=== PATIENT | female | born 1995 | race Caucasian/White ===

== ENCOUNTER → 2019-05-25 13:37 | Outpatient (CLI) | payer MEDICARE, OTHER, SELFPAY ==
--- NOTE | 2019-05-25 13:55 | DI.CT.S_ITS ---
PROCEDURE: CT ABDOMEN PELVIS W CON INDICATIONS: abdominal pain TECHNIQUE: After the administration of oral and intravenous contrast, 5 mm thick sections acquired from the diaphragms to the symphysis. 5 mm thick coronal and sagittal reformats were performed. For radiation dose reduction, the following was used: automated exposure control, adjustment of mA and/or kV according to patient size. COMPARISON: None. FINDINGS: Image quality: Diagnostic. ABDOMEN: Lung bases: Lung bases are clear. Heart size is normal. Solid organs: There is moderate right-sided hydronephrosis and hydroureter with urothelial enhancement of the ureter. The distal most aspect of the ureter contains a 3 x 3 x 3 mm calculus near the vesicoureteral junction (image 69, series 2). No additional obstructing or nonobstructing renal or ureteral calculi are seen bilaterally. No hydronephrosis of the left kidney is identified. The liver is somewhat hypodense when compared to the spleen. No focal liver lesions are evident. The gallbladder is within normal limits. There is no intrahepatic or extrahepatic biliary dilatation. The pancreas, spleen, and adrenals are within normal limits. Peritoneum and bowel: The stomach is unremarkable. The small bowel loops are nondilated. Moderate residual stool is identified throughout the colon. The appendix is not clearly seen. However, what is felt to represent the appendix (images 67, series 2 it is normal in size without surrounding inflammation. No free fluid or loculated fluid collection is seen within the abdomen. Nodes and vessels: No retroperitoneal or mesenteric adenopathy. Aorta and inferior vena cava are normal in caliber. Bones: No acute fracture or dislocation is evident. No suspicious osseous lesions present. PELVIS: Genitourinary: The urinary bladder is decompressed and subsequently not adequately evaluated. There may be a trace of free fluid within the pelvis. No loculated fluid collections are evident. The right ovary is slightly prominent in size and contains multiple follicles. The left ovary appears to be normal in size. The uterus is not enlarged. Miscellaneous: No inguinal hernias or adenopathy. Bones: No suspicious bony lesions. No acute pelvic fractures are evident. IMPRESSION: 1. At least partially obstructing distal right ureteral calculus (3 mm) with associated moderate right-sided hydronephrosis and hydroureter. 2. No convincing evidence of acute appendicitis. 2. Mild prominence of the right ovary without a definite ovarian cyst. The need for better characterization utilizing a pelvic ultrasound may be determined clinically. 4. Minimal free fluid within the pelvis is likely physiologic or reactive to the distal right ureteral calculus. There is no abscess. 5. Probable constipation. No bowel obstruction. 6. Probable hepatic steatosis. Note: Findings were discussed with Mica Kemp PAC at 1545 hours (PST) on 05/25/19. Dictated by: Paul Huff M.D. on 05/25/2019 at 14:43 Approved by: Paul Huff M.D. on 05/25/2019 at 14:50
[2019-05-25 14:32] LABS: Add Manual Diff / Slide Review NO; Basophils Absolute Auto 0 /uL (0-100); Basophils Percent Auto 0.8 % (0-2); Eosinophils Absolute Auto 100 /uL (0-450); Eosinophils Percent Auto 1.9 % (2-4); Hematocrit 40.4 % (36-46); Hemoglobin 13.5 g/dL (12.0-16.0); Lymphocytes Absolute Auto 1200 /uL (1100-4500); Lymphocytes Percent Auto 34.3 % (25-40); Mean Corpuscular HGB Conc 33.5 % (30-36); Mean Corpuscular Hemoglobin 29.6 PG (26-34); Mean Corpuscular Volume 88.3 fL (80-100); Monocytes Absolute Auto 300 /uL (0-900); Neutrophils Absolute Auto 2000 /uL (1500-7000); Platelet Count 207 X10^3/uL (150-400); Red Blood Cell Count 4.57 X10^6/uL (4.0-5.2); Red Cell Distribution Width 12.5 % (11.6-14.8); White Blood Cell Count 3.5 X10^3/uL (4.5-11.0)
[2019-05-25 14:57] LABS: Alanine Aminotransferase 10 IU/L (9-52); Albumin 4.5 g/dL (3.5-5.0); Albumin Globulin Ratio 1.4 (1.0-2.8); Alkaline Phosphatase 75 U/L (38-126); Aspartate Aminotransferase 21 IU/L (14-36); BUN Creatinine Ratio 17.5 (6-22); Bilirubin Total 0.4 mg/dL (0.2-1.3); Blood Urea Nitrogen 14 mg/dL (7-17); Calcium 9.4 mg/dL (8.4-10.2); Carbon Dioxide 26 mmol/L (22-32); Chloride 105 mmol/L (98-107); Estimated Glomerular Filt Rate > 60.0 mL/min (>60); Globulin 3.3 g/dL (1.7-4.1); Glucose 110 mg/dL (70-100); HEMOLYSIS < 15 (0-50); Potassium 3.7 mmol/L (3.4-5.1); Sodium 142 mmol/L (137-145); Total Protein 7.8 g/dL (6.3-8.2)
[2019-05-25 15:36] LABS: Appearance Urine UA CLEAR; Bilirubin Urine UA NEGATIVE (NEGATIVE); Color Urine UA YELLOW; Glucose Urine UA NEGATIVE (Negative); Ketones Urine UA NEGATIVE (NEGATIVE); Leukocyte Esterase Urine UA NEGATIVE (NEGATIVE); Nitrite Urine UA NEGATIVE (Negative); Occult Blood Urine UA 3+ (Negative); Protein Urine UA TRACE (Negative); Specific Gravity Urine UA 1.015 (1.000-1.035); Urobilinogen Urine UA 0.2 E.U./dL (0.2); pH Urine UA 6.5 (4.5-8.0)
[2019-05-25 15:39] LABS: Bacteria Urine Occasional (0-1); Culture Indicated Urine Cult Not Indicated; Mucus Urine 2+ (Negative); Pregnancy Test Urine Negative (Negative); RBC Urine 30-100/HPF (0-5/HPF); Squamous Epithelial Cell Urine 5-10 /HPF (0-5/HPF); WBC Urine 0-1/HPF (0-5/HPF)
== END ==
PROVIDERS: Visit Provider Physician Assistant
DX: R10.9 Unspecified abdominal pain (principal); N13.2 Hydronephrosis with renal and ureteral calculous obstruction; N13.4 Hydroureter
CPT/HCPCS: 36415; 74177; 80053; 81001; 81025; 85025; Q9967